=== PATIENT | female | born 1930 | race Caucasian/White ===

== ENCOUNTER 2017-05-16 12:44 | Day surgery (SDC) | payer MEDICARE, BC ==
[2017-05-16] MEDS ORDERED: PROPOFOL 10 MG/ML VIAL IV ONE (12:45)
[2017-05-16] MEDS ORDERED: LIDOCAINE 2% MDV (20MG/ML) 20ML VIAL IV ONE (12:45)
[2017-05-16] MEDS ORDERED: FENTANYL PF 100MCG/2ML VIAL IV ONE (12:45)
--- NOTE | 2017-05-17 12:50 | Operative Note ---
DATE OF SURGERY: 05/16/2017 REFERRING PROVIDER: Abi Head DO PREOPERATIVE DIAGNOSIS: Iron deficiency anemia. POSTOPERATIVE DIAGNOSES: 1. Esophageal ulcer. 2. Gastritis. 3. Duodenitis. 4. Normal-appearing colon. OPERATION: 1. ESOPHAGOGASTRODUODENOSCOPY with biopsy. 2. COLONOSCOPY. Preparation Quality: Good to excellent. Estimated Blood Loss: Minimal. Samples Obtained: Random gastric. Complications: None apparent. PROCEDURE: After informed consent was obtained, the patient was placed in the left lateral decubitus position in the endoscopy suite, sedated and monitored by the Department of Anesthesia. Once sedated, a well-lubricated SUL538 gastroscope was placed in the posterior oropharynx and under direct visualization passed to the proximal esophagus. The endoscope was advanced to the proximal, mid and distal esophagus. The GE junction demonstrated an ulcer as well as some mild edema and erythema at the GE junction. The remainder of the esophagus appeared normal. The gastric body demonstrated mild patchy erythema with some flecks of heme, particular in the antrum. The duodenal bulb demonstrated mild patchy erythema. The duodenal sweep was unremarkable. J-turn views of the proximal stomach were unrevealing. The endoscope was then straightened, random gastric biopsies were obtained. No new findings were otherwise noted upon retraction of the endoscope through the course of the proximal stomach and esophagus. Digital rectal exam was unremarkable. A well-lubricated PCF-180 colonoscope was inserted into the rectum and advanced through a somewhat tortuous sigmoid colon to the descending colon, transverse colon, and ascending colon to the cecum. The preparation quality was good to excellent. The cecum, ileocecal valve, appendiceal orifice, ascending colon, transverse colon, descending colon, sigmoid colon, and rectum are free of inflammatory changes, mass lesions or polyps. The patient had a relatively short rectum, and I was unable to invert the scope given the anatomy. There was no trauma to the rectal mucosa. The rectal ampulla was deflated and the endoscope was removed. RECOMMENDATIONS: The patient should be on a daily proton pump inhibitor. I will suggest pantoprazole 40 mg daily. Ideally, she should undergo repeat upper endoscopy in 8 weeks to assess healing. As always, thank you for allowing me to participate in the health care of your patients. CC: Abi Head DO [facility]
== END 2017-05-16 14:28 | disposition home or self-care (01) ==
LOC: HOP 12:44
PROVIDERS: ATTEND Internal Medicine Gastroenterology
DX: K29.50 Unspecified chronic gastritis without bleeding (principal); B96.81 Helicobacter pylori [H. pylori] as the cause of diseases classified elsewhere; D50.9 Iron deficiency anemia, unspecified; K29.80 Duodenitis without bleeding; Z12.11 Encounter for screening for malignant neoplasm of colon; H35.30 Unspecified macular degeneration
CPT/HCPCS: 00813; 43239; G0121